=== PATIENT | female | born 1990 | race African-American/Black ===

== ENCOUNTER 2016-12-21 13:42 | Emergency (ER) | payer BC ==
[2016-12-21 14:53] LABS: APPEARANCE CLEAR (CLEAR); BILIRUBIN NEGATIVE (NEGATIVE); COLOR YELLOW (YELLOW); GLUCOSE NEGATIVE (NEGATIVE); KETONE NEGATIVE (NEGATIVE); LEUKOCYTE ESTERASE NEGATIVE (NEGATIVE); NITRITE NEGATIVE (NEGATIVE); PROTEIN NEGATIVE (NEGATIVE); SPECIFIC GRAVITY 1.015 (1.005-1.020); UROBILINOGEN NORMAL (NORMAL)
[2016-12-21 14:54] LABS: BASOPHILS 0.3 % (0.0-2.0); HEMATOCRIT 37.8 % (36.0-48.0); HEMOGLOBIN 11.6 g/dL (12-16); IMMATURE GRANULOCYTES 0.1 % (0-5); LYMPHOCYTES 35.2 % (15-50); MCH 23.5 pg (26.0-34.0); MCHC 30.7 g/dL (31.0-37.0); MCV 76.7 fL (80.0-100.0); MEAN PLATELET VOLUME 10.7 fL (7.4-10.4); MONOCYTES 5.3 % (2-11); NEUTROPHILS 55.1 % (40-80); PLATELET COUNT 339 10x3/uL (130-400); RBC 4.93 10x6/uL (4.00-5.40); RDW 13.9 % (11.5-14.5); WBC 7.3 10x3/uL (4.8-10.8)
[2016-12-21 15:08] LABS: AMYLASE - SERUM 141 U/L (25-115); LIPASE 102 U/L (73-393)
[2016-12-21 15:09] LABS: HCG SERUM NEGATIVE (NEGATIVE)
== END 2016-12-21 21:27 | disposition home or self-care (01) ==
LOC: D.ER 13:42
PROVIDERS: Emergency Medicine
DX: K21.9 Gastro-esophageal reflux disease without esophagitis (principal); R11.0 Nausea; R10.13 Epigastric pain

== ENCOUNTER → 2017-12-26 05:19 | Emergency (ER) | payer MEDICAID ==
[2017-12-26 06:52] LABS: BASOPHILS 0.5 % (0-2); EOSINOPHILS 4.2 % (0-7); HEMATOCRIT 35.3 % (36.0-48.0); HEMOGLOBIN 10.7 g/dL (12-16); IMMATURE GRANULOCYTES 0.2 % (0-5); LYMPHOCYTES 44.4 % (15-50); MCHC 30.3 g/dL (31.0-37.0); MCV 75.9 fL (80.0-100.0); MEAN PLATELET VOLUME 10.5 fL (7.4-10.4); MONOCYTES 7.6 % (2-11); NEUTROPHILS 43.1 % (40-80); PLATELET COUNT 331 10x3/uL (130-400); RBC 4.65 10x6/uL (4.00-5.40); RDW 13.6 % (11.5-14.5); WBC 6.2 10x3/uL (4.8-10.8)
[2017-12-26 06:57] LABS: APPEARANCE CLEAR (CLEAR); BILIRUBIN NEGATIVE (NEGATIVE); COLOR YELLOW (YELLOW); GLUCOSE NEGATIVE (NEGATIVE); KETONE NEGATIVE (NEGATIVE); NITRITE NEGATIVE (NEGATIVE); PROTEIN NEGATIVE (NEGATIVE); UROBILINOGEN NORMAL (NORMAL)
[2017-12-26 07:03] LABS: HCG URINE NEGATIVE (NEGATIVE)
[2017-12-26 07:26] LABS: ALBUMIN 3.5 g/dL (3.4-5.0); ALKALINE PHOSPHATASE 78 U/L (46-116); ALT (SGPT) 25 U/L (10-68); BILIRUBIN - TOTAL 0.64 mg/dL (0.2-1.3); CALC OSMOLALITY 277 mosm/kg (275-300); CALCIUM 8.9 mg/dL (8.5-10.1); CARBON DIOXIDE 27.1 mmol/L (21.0-32.0); CHLORIDE - SERUM 105 mmol/L (98-107); CREATININE - SERUM 0.9 mg/dL (0.6-1.3); GLUCOSE 97 mg/dL (74-106); POTASSIUM - SERUM 3.9 mmol/L (3.5-5.1); PROTEIN - SERUM 7.7 g/dL (6.4-8.2); SODIUM 139 mmol/L (136-145); UREA NITROGEN 12 mg/dL (7-18); eGFR NON AFRICAN AMERICAN 81 mL/min (90-120)
== END | disposition home or self-care (01) ==
LOC: D.ER 05:19
PROVIDERS: Family Medicine
DX: R51 Headache (principal); F17.200 Nicotine dependence, unspecified, uncomplicated; K21.9 Gastro-esophageal reflux disease without esophagitis

== ENCOUNTER 2019-03-02 19:53 | Emergency (ER) | payer MEDICAID ==
[~2019-03-02] VITALS: Ht 167.6 cm; Wt 110.2 kg
[2019-03-02 20:01] VITALS: Ht 167.6 cm; Wt 110.2 kg
[2019-03-02] MEDS ORDERED: VIBRAMYCIN 100100 MG PO (21:10)
[2019-03-02] MEDS ORDERED: VOLTAREN75 MG PO (21:10)
[2019-03-02 21:21] VITALS: BP 154/82
== END 2019-03-02 21:23 | disposition home or self-care (01) ==
LOC: D.ER 19:53
DX: L03.011 Cellulitis of right finger (principal)

== ENCOUNTER 2019-04-28 07:59 | Emergency (ER) | payer SELFPAY ==
[~2019-04-28] VITALS: Ht 167.6 cm; Wt 106.8 kg
[~2019-04-28 07:59] MED LIST: VIBRAMYCIN 100100 MG PO; VOLTAREN75 MG PO
[2019-04-28 08:09] VITALS: Ht 167.6 cm; Wt 106.8 kg
[2019-04-28 08:39] LABS: BASOPHILS 1.1 % (0-2); EOSINOPHILS 8.3 % (0-7); HEMATOCRIT 35.6 % (36.0-48.0); HEMOGLOBIN 11.2 g/dL (12-16); LYMPHOCYTES 38.3 % (15-50); MCH 23.6 pg (26.0-34.0); MCHC 31.5 g/dL (31.0-37.0); MCV 74.9 fL (80.0-100.0); MEAN PLATELET VOLUME 10.3 fL (7.4-10.4); MONOCYTES 12.9 % (2-11); NEUTROPHILS 39.4 % (40-80); PLATELET COUNT 327 10x3/uL (130-400); RBC 4.75 10x6/uL (4.00-5.40); RDW 13.7 % (11.5-14.5); WBC 4.7 10x3/uL (4.8-10.8)
[2019-04-28 08:57] LABS: ALBUMIN 3.9 g/dL (3.4-5.0); ANION GAP 11.4 mmol/L (8-16); BILIRUBIN - TOTAL 0.62 mg/dL (0.2-1.3); CALCIUM 8.8 mg/dL (8.5-10.1); CARBON DIOXIDE 28.5 mmol/L (21.0-32.0); CREATININE - SERUM 1.1 mg/dL (0.6-1.3); POTASSIUM - SERUM 3.9 mmol/L (3.5-5.1); PROTEIN - SERUM 8.7 g/dL (6.4-8.2)
[2019-04-28 08:59] LABS: APPEARANCE CLOUDY (CLEAR); COLOR YELLOW (YELLOW); HCG URINE NEGATIVE (NEGATIVE); NITRITE NEGATIVE (NEGATIVE); PROTEIN 1+ mg/dL (NEGATIVE)
[2019-04-28 09:00] LABS: BILIRUBIN NEGATIVE (NEGATIVE); GLUCOSE NEGATIVE (NEGATIVE); KETONE NEGATIVE (NEGATIVE); UROBILINOGEN NORMAL (NORMAL); WHITE CELLS - URINE >50 /hpf (0-5)
[2019-04-28 09:01] LABS: BACTERIA FEW /hpf (NONE SEEN); EPITHELIAL CELLS 0-5 /hpf (0-5)
[2019-04-28] MEDS ORDERED: MACROBID100 MG PO (09:12)
[2019-04-28] MEDS ORDERED: MILK OF MAGNESI30 ML PO (09:12)
[2019-04-28] MEDS ORDERED: GLYCERIN A1 SUPP.REC RC (09:12)
[2019-04-28] MEDS ORDERED: MIRALAX17 GM PO (09:12)
[2019-04-28] MEDS ORDERED: SULFAMETHOXAZOL1 TA3 PO (09:12)
[2019-04-28 09:24] VITALS: BP 115/73
== END 2019-04-28 09:20 | disposition home or self-care (01) ==
LOC: D.ER 07:59
PROVIDERS: Family Medicine
DX: K59.00 Constipation, unspecified (principal); N39.0 Urinary tract infection, site not specified

== ENCOUNTER 2019-10-28 13:31 | Emergency (ER) | payer MEDICAID ==
[~2019-10-28] VITALS: Ht 167.6 cm; Wt 106.4 kg
[~2019-10-28 13:31] MED LIST changes: +GLYCERIN A1 SUPP.REC RC; +MACROBID100 MG PO; +MILK OF MAGNESI30 ML PO; +MIRALAX17 GM PO; +SULFAMETHOXAZOL1 TA3 PO
[2019-10-28 13:48] VITALS: Ht 167.6 cm; Wt 106.4 kg
[2019-10-28] MEDS ORDERED: PHENERGAN25 M1 PO (15:07)
[2019-10-28] MEDS ORDERED: TAMIFLU75 MG PO (15:07)
[2019-10-28 15:26] VITALS: BP 130/74
== END 2019-10-28 15:26 | disposition home or self-care (01) ==
LOC: D.ER 13:31
DX: J11.1 Influenza due to unidentified influenza virus with other respiratory manifestations (principal); Z72.0 Tobacco use

== ENCOUNTER → 2020-06-04 09:26 | Outpatient (CLI) | payer MEDICAID ==
[2019-10-28 13:48] VITALS: BMI 37.8
[~2020-06-04 09:26] MED LIST changes: +PHENERGAN25 M1 PO; +TAMIFLU75 MG PO
== END | disposition home or self-care (01) ==
LOC: D.US 09:26
PROVIDERS: ATTEND Student in an Organized Health Care Education/Training Program
DX: N64.3 Galactorrhea not associated with childbirth (principal)

== ENCOUNTER 2021-03-15 05:51 | Emergency (ER) | payer BC ==
[~2021-03-15] VITALS: Ht 167.6 cm; Wt 109.1 kg
[2021-03-15 05:55] VITALS: BP 147/90; Ht 167.6 cm; Wt 109.1 kg
[2021-03-15] MEDS ORDERED: BENICAR20 MG PO (06:00)
[2021-03-15] MEDS ORDERED: ATIVAN0.5 MG PO (06:01)
[2021-03-15] MEDS ORDERED: ZOLOFT25 MG PO (06:01)
[2021-03-15 06:43] LABS: BASOPHILS 1.1 % (0-2); HEMOGLOBIN 10.7 g/dL (12-16); LYMPHOCYTES 35.4 % (15-50); MCH 22.8 pg (26.0-34.0); MCHC 30.6 g/dL (31.0-37.0); MCV 74.4 fL (80.0-100.0); MEAN PLATELET VOLUME 8.7 fL (7.4-10.4); MONOCYTES 7.2 % (2-11); NEUTROPHILS 47.3 % (40-80); PLATELET COUNT 351 10x3/uL (130-400); RDW 14.2 % (11.5-14.5); WBC 7.6 10x3/uL (4.8-10.8)
[2021-03-15 06:45] LABS: ANION GAP 11.1 mmol/L (8-16); CALCIUM 8.3 mg/dL (8.5-10.1); CARBON DIOXIDE 27.1 mmol/L (21.0-32.0); CREATININE - SERUM 1.1 mg/dL (0.6-1.3); POTASSIUM - SERUM 4.2 mmol/L (3.5-5.1)
[2021-03-15 06:51] LABS: ALBUMIN 3.4 g/dL (3.4-5.0); BILIRUBIN - TOTAL 0.58 mg/dL (0.2-1.3); PROTEIN - SERUM 7.7 g/dL (6.4-8.2)
[2021-03-15 06:56] LABS: BILIRUBIN NEGATIVE (NEGATIVE); HCG URINE NEGATIVE (NEGATIVE); KETONE NEGATIVE (NEGATIVE); NITRITE NEGATIVE (NEGATIVE); UROBILINOGEN NORMAL mg/dL (< 2)
== END 2021-03-15 08:42 | disposition home or self-care (01) ==
LOC: D.ER 05:51
PROVIDERS: Family Medicine
DX: R10.31 Right lower quadrant pain (principal); I10 Essential (primary) hypertension; F41.9 Anxiety disorder, unspecified; Z72.0 Tobacco use